=== PATIENT | female | born 1945 | race African-American/Black ===

== ENCOUNTER 2018-08-29 13:15 | Inpatient (IN) | payer MEDICARE, OTHER ==
[~2018-08-29] VITALS: Ht 154.9 cm; Wt 51.3 kg
[2018-08-29] MEDS ORDERED: SODIUM CHLORIDE 0.9% 1,000 ML IV ONE (14:30)
[2018-08-29 14:44] LABS: BASOPHILS % 0.6 % (0.0-2.0); EOSINOPHILS % 0.2 % (0.0-5.0); HEMATOCRIT. 41.2 % (36.0-48.0); HEMOGLOBIN. 13.6 g/dL (12.0-16.0); LYMPHOCYTES % 17.8 % (20.0-50.0); MEAN CORPUSCULAR HEMOGLOBIN 30.3 pg (28.0-32.0); MEAN CORPUSCULAR VOLUME 91.9 fL (81.0-99.0); MEAN PLATELET VOLUME 8.3 fl (7.4-10.4); NEUTROPHILS % 68.4 % (40.0-76.0); PLATELET 160 x1000/uL (130-400); RED BLOOD CELL COUNT 4.48 mill/uL (4.2-5.4); RED CELL DISTRIBUTION WIDTH 13.2 % (11.6-14.6)
[2018-08-29 14:52] LABS: INR 1.2
[2018-08-29 15:24] LABS: CLARITY URINE CLOUDY (CLEAR); COLOR URINE DARK YELLOW (YELLOW); KETONES URINE 1+ (NEGATIVE); LEUKOCYTE ESTERASE URINE TRACE (NEGATIVE); NITRITE URINE NEGATIVE (NEGATIVE); OCCULT BLOOD URINE 1+ (NEGATIVE); PROTEIN URINE NEGATIVE (NEGATIVE); SPECIFIC GRAVITY URINE 1.026 (1.005-1.030)
[2018-08-29] MEDS ORDERED: ASPIRIN 325MG EC TABLET PO ONE (16:15)
[2018-08-29 16:33] LABS: CHLORIDE 108 mEq/L (98-107)
[2018-08-29] MEDS ORDERED: LORAZEPAM 0.5MG TABLET PO PRN (17:15)
[2018-08-29] MEDS ORDERED: ACETAMINOPHEN 325MG TABLET PO PRN (17:15)
[2018-08-29] MEDS ORDERED: DOCUSATE SODIUM 100MG CAPSULE PO PRN (17:15)
[2018-08-29] MEDS ORDERED: MAGNESIUM/ALUMINUM HYDROXIDE/SIMETHICONE 30ML UDC PO PRN (17:15)
[2018-08-29] MEDS ORDERED: CLONIDINE 0.1MG TABLET PO PRN (17:15)
[2018-08-29] MEDS ORDERED: HYDROCODONE/APAP 7.5/325MG 1 TAB TABLET PO PRN (17:15)
[2018-08-29] MEDS ORDERED: IPRATROPIUM/ALBUTEROL 0.5-3(2.5)MG/3ML NEB INH PRN (17:15)
[2018-08-29] MEDS ORDERED: GUAIFENESIN 200MG/10ML SUGAR FREE UDC PO PRN (17:15)
[2018-08-29] MEDS ORDERED: ONDANSETRON HCL 4MG/2ML INJ IV PRN (17:15)
[2018-08-29] MEDS ORDERED: HYDROCODONE/ACETAMINOPHEN 5/325MG TABLET PO PRN (17:15)
[2018-08-29] MEDS ORDERED: DIPHENHYDRAMINE 50MG/ML VIAL IV PRN (17:15)
[2018-08-29 18:21] VITALS: BP 156/86
[2018-08-29] MEDS ORDERED: ATOR20TA65 MT (18:51)
[2018-08-29] MEDS ORDERED: CHOL200010 MT (18:51)
[2018-08-29] MEDS ORDERED: OLME40TA11 MT (18:51)
[2018-08-29 20:00] VITALS: BP 151/87
[2018-08-29] MEDS: ENOXAPARIN 30MG/0.3ML SYR SUBCUT SCH (20:31)
[2018-08-29] MEDS: AMLODIPINE 2.5MG TABLET PO SCH (20:31)
[2018-08-29] MEDS ORDERED: KCL 20MEQ/100ML PREMIX 100 ML IV SCH (22:30)
[2018-08-30] VITALS: BP 141/88
[2018-08-30 04:00] VITALS: BP 119/62
[2018-08-30 06:17] LABS: BASOPHILS % 0.7 % (0.0-2.0); EOSINOPHILS % 0.4 % (0.0-5.0); HEMATOCRIT. 36.7 % (36.0-48.0); HEMOGLOBIN. 12.7 g/dL (12.0-16.0); LYMPHOCYTES % 13.7 % (20.0-50.0); MEAN CORPUSCULAR HEMOGLOBIN 30.5 pg (28.0-32.0); MEAN CORPUSCULAR VOLUME 88.6 fL (81.0-99.0); MEAN PLATELET VOLUME 8.4 fl (7.4-10.4); MONOCYTES % 8.2 % (2.0-8.0); PLATELET 176 x1000/uL (130-400); RED BLOOD CELL COUNT 4.15 mill/uL (4.2-5.4)
[2018-08-30 06:25] LABS: CHLORIDE 104 mEq/L (98-107)
[2018-08-30 06:39] LABS: LDL CHOLESTEROL 62 mg/dL (5-100)
[2018-08-30 06:41] LABS: T4 FREE 1.21 ng/dL (0.76-1.46)
[2018-08-30 06:42] LABS: HDL CHOLESTEROL 53 mg/dL (40-59); PHOSPHORUS 3.1 mg/dL (2.5-4.9)
[2018-08-30 08:00] VITALS: BP 102/52
[2018-08-30] MEDS: AMLODIPINE 2.5MG TABLET PO SCH ×2 (09:00→21:00)
[2018-08-30 09:27] LABS: ETHANOL BLOOD < 10 mg/dL
[2018-08-30 09:28] LABS: CREATINE KINASE 74 IU/L (26-192)
[2018-08-30 09:33] LABS: T4 FREE 1.24 ng/dL (0.76-1.46)
[2018-08-30 09:46] LABS: FOLIC ACID (FOLATE) SERUM 15.2 ng/mL (>5.38)
[2018-08-30] MEDS ORDERED: GADOBENATE DIMEGLUMINE 529 MG/ML 10ML IV ONE (10:26)
[2018-08-30 12:00] VITALS: BP 113/62
[2018-08-30 13:24] LABS: *AMPHETAMINES SCREEN URINE NEGATIVE (NEGATIVE); *BARBITURATES SCREEN URINE NEGATIVE (NEGATIVE); *BENZODIAZEPINES SCREEN URINE NEGATIVE (NEGATIVE); *COCAINE SCREEN URINE NEGATIVE (NEGATIVE); METHADONE URINE SCREEN NEGATIVE (NEGATIVE)
[2018-08-30 13:25] LABS: CANNABINOID URINE SCREEN NEGATIVE (NEGATIVE); OPIATES URINE SCREEN NEGATIVE (NEGATIVE); PHENCYCLIDINE URINE SCREEN NEGATIVE (NEGATIVE)
[2018-08-30 16:00] VITALS: BP 95/55
[2018-08-30 20:00] VITALS: BP 103/63
[2018-08-30] MEDS: ENOXAPARIN 30MG/0.3ML SYR SUBCUT SCH (20:00)
[2018-08-31] VITALS: BP 107/63
[2018-08-31 04:00] VITALS: BP 126/73
[2018-08-31 08:00] VITALS: BP 124/76
[2018-08-31] MEDS: AMLODIPINE 2.5MG TABLET PO SCH ×2 (09:00→21:08)
[2018-08-31 09:17] LABS: BASOPHILS % 0.6 % (0.0-2.0); EOSINOPHILS % 0.7 % (0.0-5.0); HEMATOCRIT. 37.4 % (36.0-48.0); HEMOGLOBIN. 12.7 g/dL (12.0-16.0); LYMPHOCYTES % 22.7 % (20.0-50.0); MEAN CORPUSCULAR HEMOGLOBIN 30.1 pg (28.0-32.0); MEAN CORPUSCULAR VOLUME 88.6 fL (81.0-99.0); MONOCYTES % 9.9 % (2.0-8.0); NEUTROPHILS % 66.1 % (40.0-76.0); PLATELET 181 x1000/uL (130-400); RED BLOOD CELL COUNT 4.22 mill/uL (4.2-5.4)
[2018-08-31 10:06] LABS: CHLORIDE 104 mEq/L (98-107)
[2018-08-31 12:22] VITALS: BP 126/77
[2018-08-31] MEDS ORDERED: LACTULOSE 20G/30ML UDC PO SCH (14:00)
[2018-08-31] MEDS ORDERED: NA PHOS,M-B/NA PHOS,DI-BA ENEMA 118ML PR NR (14:00)
[2018-08-31] MEDS ORDERED: BISACODYL 10MG SUPP PR PRN (14:00)
[2018-08-31 16:00] VITALS: BP 134/76
[2018-08-31] MEDS: DOCUSATE SODIUM 100MG CAPSULE PO SCH (16:44)
[2018-08-31 20:00] VITALS: BP 131/77
[2018-08-31] MEDS ORDERED: LEVOFLOXACIN 500MG PREMIX 100 ML IV SCH (20:00)
[2018-08-31] MEDS: POLYETHYLENE GLYCOL 3350 (17GM) 1 DOSE PACK PO SCH (21:08)
[2018-09-01] VITALS: BP 146/89
[2018-09-01 04:00] VITALS: BP 132/84
[2018-09-01] MEDS ORDERED: BISACODYL 10MG SUPP PR SCH (06:00)
[2018-09-01 06:29] LABS: CHLORIDE 104 mEq/L (98-107)
[2018-09-01 06:38] LABS: BASOPHILS % 0.7 % (0.0-2.0); EOSINOPHILS % 0.6 % (0.0-5.0); HEMATOCRIT. 36.8 % (36.0-48.0); HEMOGLOBIN. 12.7 g/dL (12.0-16.0); LYMPHOCYTES % 16.1 % (20.0-50.0); MEAN CORPUSCULAR HEMOGLOBIN 30.5 pg (28.0-32.0); MEAN CORPUSCULAR VOLUME 88.1 fL (81.0-99.0); MONOCYTES % 10.9 % (2.0-8.0); NEUTROPHILS % 71.7 % (40.0-76.0); PLATELET 198 x1000/uL (130-400); RED BLOOD CELL COUNT 4.18 mill/uL (4.2-5.4); RED CELL DISTRIBUTION WIDTH 12.9 % (11.6-14.6)
[2018-09-01] MEDS ORDERED: NA PHOS,M-B/NA PHOS,DI-BA ENEMA 118ML PR PRN (08:00)
[2018-09-01] MEDS: DOCUSATE SODIUM 100MG CAPSULE PO SCH ×2 (09:06→17:12)
[2018-09-01] MEDS: AMLODIPINE 2.5MG TABLET PO SCH ×2 (09:06→22:41)
[2018-09-01] MEDS ORDERED: MORPHINE SULFATE 2 MG/ML CPJ (NOT FOR IM USE) IV NR (09:30)
[2018-09-01 12:00] VITALS: BP 127/74
[2018-09-01] MEDS ORDERED: POTASSIUM CHLORIDE INJ 40 MEQ in DEXT 5% WATER 250 ML IV NR (12:00)
[2018-09-01 12:47] LABS: GLUCOSE CSF 57 mg/dL (41-75)
[2018-09-01] MEDS ORDERED: LIDOCAINE HCL 1% 20ML VIAL (Pyxis) INJ ONE ×2 (13:44→13:48)
[2018-09-01] MEDS ORDERED: SODIUM BICARBONATE 4% (2.4MEQ) 5ML VIAL IV ONE ×2 (13:44→13:48)
[2018-09-01] MEDS ORDERED: LORAZEPAM 0.5MG TABLET PO PRN (15:00)
[2018-09-01] MEDS ORDERED: POTASSIUM CHLORIDE 20MEQ TABLET SR PO NR (15:45)
[2018-09-01 16:27] VITALS: BP 125/78
[2018-09-01 20:00] VITALS: BP 115/68
[2018-09-01] MEDS: LEVOFLOXACIN 250MG PREMIX 50 ML IV SCH (20:00)
[2018-09-01] MEDS: POLYETHYLENE GLYCOL 3350 (17GM) 1 DOSE PACK PO SCH (22:41)
[2018-09-02] VITALS (9 sets, daily range): BP systolic 103–163; BP diastolic 62–75
[2018-09-02 06:40] LABS: HEMATOCRIT 35.7 % (36.0-48.0); HEMOGLOBIN 12.1 g/dL (12.0-16.0); MEAN CORPUSCULAR VOLUME 88.6 fL (81.0-99.0); PLATELET 208 x1000/uL (130-400); RED BLOOD CELL COUNT 4.03 mill/uL (4.2-5.4); RED CELL DISTRIBUTION WIDTH 13.3 % (11.6-14.6)
[2018-09-02 07:17] LABS: CHLORIDE 105 mEq/L (98-107)
[2018-09-02] MEDS: AMLODIPINE 2.5MG TABLET PO SCH ×2 (09:24→20:53)
[2018-09-02] MEDS: DOCUSATE SODIUM 100MG CAPSULE PO SCH ×2 (09:24→17:00)
[2018-09-02] MEDS: ENOXAPARIN 30MG/0.3ML SYR SUBCUT SCH (20:53)
[2018-09-02] MEDS: POLYETHYLENE GLYCOL 3350 (17GM) 1 DOSE PACK PO SCH (20:53)
[2018-09-02] MEDS: LEVOFLOXACIN 250MG PREMIX 50 ML IV SCH (21:38)
[2018-09-03 04:00] VITALS: BP 106/61
[2018-09-03 05:54] LABS: CHLORIDE 105 mEq/L (98-107)
[2018-09-03 06:21] LABS: HEMATOCRIT 40.9 % (36.0-48.0); HEMOGLOBIN 13.2 g/dL (12.0-16.0); MEAN CORPUSCULAR HEMOGLOBIN 29.7 pg (28.0-32.0); PLATELET 187 x1000/uL (130-400); RED BLOOD CELL COUNT 4.44 mill/uL (4.2-5.4); RED CELL DISTRIBUTION WIDTH 13.4 % (11.6-14.6)
[2018-09-03 08:00] VITALS: BP 110/61
[2018-09-03] MEDS: AMLODIPINE 2.5MG TABLET PO SCH ×3 (08:02→21:16)
[2018-09-03] MEDS: DOCUSATE SODIUM 100MG CAPSULE PO SCH ×3 (08:02→17:30)
[2018-09-03] MEDS ORDERED: DEXT 5%/0.45% NACL 1000ML 1,000 ML IV SCH (10:30)
[2018-09-03] MEDS: DEXT 5%/0.45% NACL 1000ML 1,000 ML IV SCH (11:52)
[2018-09-03 12:00] VITALS: BP 104/60
[2018-09-03 16:00] VITALS: BP 125/68
[2018-09-03 20:00] VITALS: BP 117/66
[2018-09-03] MEDS: POLYETHYLENE GLYCOL 3350 (17GM) 1 DOSE PACK PO SCH (21:13)
[2018-09-03] MEDS: ENOXAPARIN 30MG/0.3ML SYR SUBCUT SCH (21:13)
[2018-09-04] VITALS: BP 125/70
[2018-09-04] MEDS: DEXT 5%/0.45% NACL 1000ML 1,000 ML IV SCH ×2 (01:10→14:33)
[2018-09-04 04:00] VITALS: BP_SYST 126; BP_SYST 128; BP_DIAS 66; BP_DIAS 75
[2018-09-04 08:00] VITALS: BP 128/68
[2018-09-04] MEDS: DOCUSATE SODIUM 100MG CAPSULE PO SCH ×2 (08:11→17:00)
[2018-09-04] MEDS: AMLODIPINE 2.5MG TABLET PO SCH ×2 (08:12→21:00)
[2018-09-04 12:00] VITALS: BP 103/73
[2018-09-04 15:57] VITALS: BP 128/65
[2018-09-04 17:11] LABS: *HSV 1 DNA PCR Negative (Negative); *HSV 2 DNA PCR Negative (Negative)
[2018-09-04] MEDS: ENOXAPARIN 30MG/0.3ML SYR SUBCUT SCH (20:00)
[2018-09-04] MEDS: POLYETHYLENE GLYCOL 3350 (17GM) 1 DOSE PACK PO SCH (21:00)
[2018-09-05 04:00] VITALS: BP 151/83
[2018-09-05] MEDS: DEXT 5%/0.45% NACL 1000ML 1,000 ML IV SCH ×2 (04:25→17:27)
[2018-09-05 06:11] LABS: HEMATOCRIT. 36.8 % (36.0-48.0); HEMOGLOBIN. 12.4 g/dL (12.0-16.0); LYMPHOCYTES % 26.3 % (20.0-50.0); MEAN CORPUSCULAR HEMOGLOBIN 29.9 pg (28.0-32.0); MEAN CORPUSCULAR VOLUME 88.8 fL (81.0-99.0); MEAN PLATELET VOLUME 7.9 fl (7.4-10.4); NEUTROPHILS % 57.7 % (40.0-76.0); PLATELET 221 x1000/uL (130-400); RED BLOOD CELL COUNT 4.15 mill/uL (4.2-5.4); RED CELL DISTRIBUTION WIDTH 12.9 % (11.6-14.6)
[2018-09-05 06:38] LABS: CHLORIDE 107 mEq/L (98-107)
[2018-09-05] MEDS: AMLODIPINE 2.5MG TABLET PO SCH ×2 (09:00→21:01)
[2018-09-05] MEDS: DOCUSATE SODIUM 100MG CAPSULE PO SCH ×2 (09:00→17:00)
[2018-09-05 12:00] VITALS: BP 131/90
[2018-09-05 16:00] VITALS: BP_SYST 124; BP_SYST 139; BP_DIAS 68; BP_DIAS 78
[2018-09-05 20:00] VITALS: BP 126/60
[2018-09-05 20:17] VITALS: BP 126/60
[2018-09-05] MEDS: POLYETHYLENE GLYCOL 3350 (17GM) 1 DOSE PACK PO SCH (21:00)
[2018-09-05] MEDS: ENOXAPARIN 40MG/0.4ML SYR SUBCUT SCH (21:01)
[2018-09-06] VITALS (7 sets, daily range): BP systolic 117–149; BP diastolic 64–80
[2018-09-06 07:10] LABS: CHLORIDE 107 mEq/L (98-107)
[2018-09-06 07:15] LABS: HEMATOCRIT 40.9 % (36.0-48.0); HEMOGLOBIN 13.7 g/dL (12.0-16.0); MEAN CORPUSCULAR HEMOGLOBIN 30.1 pg (28.0-32.0); MEAN CORPUSCULAR VOLUME 89.7 fL (81.0-99.0); PLATELET 224 x1000/uL (130-400); RED BLOOD CELL COUNT 4.56 mill/uL (4.2-5.4); RED CELL DISTRIBUTION WIDTH 12.9 % (11.6-14.6)
[2018-09-06] MEDS: DOCUSATE SODIUM 100MG CAPSULE PO SCH ×2 (13:11→18:27)
[2018-09-06] MEDS: AMLODIPINE 2.5MG TABLET PO SCH ×2 (13:11→20:27)
[2018-09-06] MEDS: DEXT 5%/0.45% NACL 1000ML 1,000 ML IV SCH ×2 (13:12→19:29)
[2018-09-06] MEDS ORDERED: LACTULOSE 20G/30ML UDC PO NR (14:15)
[2018-09-06] MEDS ORDERED: NA PHOS,M-B/NA PHOS,DI-BA ENEMA 118ML PR NR (14:15)
[2018-09-06] MEDS: ENOXAPARIN 40MG/0.4ML SYR SUBCUT SCH (20:27)
[2018-09-06] MEDS ORDERED: POLYETHYLENE GLYCOL 3350 (17GM) 1 DOSE PACK PO SCH (21:00)
== END 2018-09-06 22:25 | disposition short-term general hospital (02) | DRG 97 ==
LOC: ER 13:15 → 8WST 16:18 → EDBEDREQ 16:20 → ENRESERV 17:04
PROVIDERS: ADMIT Internal Medicine; ATTEND Internal Medicine
PROC: 009U3ZZ Drainage of Spinal Canal, Percutaneous Approach (ICD-10-PCS; principal; 2018-09-01)
DX: G04.91 Myelitis, unspecified (principal); G82.50 Quadriplegia, unspecified; G37.9 Demyelinating disease of central nervous system, unspecified; N39.0 Urinary tract infection, site not specified; G95.29 Other cord compression; G35 Multiple sclerosis; M48.02 Spinal stenosis, cervical region; M25.78 Osteophyte, vertebrae; M21.379 Foot drop, unspecified foot; M48.061 Spinal stenosis, lumbar region without neurogenic claudication; E78.00 Pure hypercholesterolemia, unspecified; I10 Essential (primary) hypertension; K59.00 Constipation, unspecified; W18.39XA Other fall on same level, initial encounter; R26.9 Unspecified abnormalities of gait and mobility; M47.892 Other spondylosis, cervical region; M48.07 Spinal stenosis, lumbosacral region; Z90.12 Acquired absence of left breast and nipple; Z92.21 Personal history of antineoplastic chemotherapy; Y93.89 Activity, other specified; Y92.89 Other specified places as the place of occurrence of the external cause; Z85.3 Personal history of malignant neoplasm of breast; Y99.8 Other external cause status; Z86.73 Personal history of transient ischemic attack (TIA), and cerebral infarction without residual deficits; Z88.0 Allergy status to penicillin; Z79.899 Other long term (current) drug therapy
CPT/HCPCS: 36415; 62270; 70544; 70553; 71045; 72141; 72142; 72146; 72148; 77003; 80048; 80061; 80305; 80320; 82040; 82042; 82140; 82550; 82607; 82746; 82784; 82945; 82962; 83036; 83735; 83873; 83880; 83916; 84100; 84157; 84439; 84443; 84481; 84484; 85027; 85651; 86635; 87070; 87252; 87529; 87899; 92610; 93005; 93306; 93880; 96360; 96361; 97110; 97163; 97166; 97530; 97535; 99285; A9577; C1893; J1650; J1956; J2270; J3480; J3490; J7030; J7050; J7060; A4315; G0480